=== PATIENT | male | born 2000 | race African-American/Black ===

== ENCOUNTER 2020-04-02 10:08 | Emergency (ER) | payer BC, OTHER | END 2020-04-02 11:11 | disposition home or self-care (01) | LOC: ERS 10:08 | DX: B00.9 Herpesviral infection, unspecified (principal); F32.9 Major depressive disorder, single episode, unspecified; F17.210 Nicotine dependence, cigarettes, uncomplicated; Z79.899 Other long term (current) drug therapy | CPT/HCPCS: 99283 ==

== ENCOUNTER 2021-01-15 16:51 | Emergency (ER) | payer SELFPAY | END 2021-01-15 17:27 | disposition home or self-care (01) | LOC: ERS 16:51 | DX: K64.4 Residual hemorrhoidal skin tags (principal); F17.210 Nicotine dependence, cigarettes, uncomplicated | CPT/HCPCS: 99283 ==

== ENCOUNTER 2021-01-19 02:52 | Emergency (ER) | payer SELFPAY ==
[2021-01-19] MEDS ORDERED: Ketorolac Tromethamine 30 MG/ML VIAL ONE (03:22)
[2021-01-19 04:01] LABS: Bacteria/HPF None Seen HPF (None Seen); Bilirubin Negative (Negative); Blood, Urine 3+ (Negative); Clarity Turbid (Clear); Glucose, Urine (Dipstick) Normal (Negative); Ketone, Urine Negative (Negative); Leukocyte Negative Leu/uL (Negative); Nitrite Negative (Negative); Protein, Urine (Dipstick) 50 mg/dL (Neg-Trace); RBC/HPF Greater than 50 HPF (0-3); Specific Gravity, Urine 1.033 (1.002-1.036); Squamous Epithelial None Seen HPF (0-3)
[2021-01-19 04:19] LABS: ALT (SGPT) 15 U/L (8-55); Albumin 4.4 g/dL (3.5-5.0); Alkaline Phosphatase 69 U/L (50-130); Anion Gap 16 mmol/L (10-20); BUN (Urea Nitrogen) 10 mg/dL (8.9-20.6); Bilirubin, Total 0.6 mg/dL (0.2-1.2); Calc. Creatinine Clearance 0 mL/min (70-130); Calcium 9.4 mg/dL (7.8-10.44); Carbon Dioxide 22 mmol/L (22-29); Chloride 103 mmol/L (98-107); Globulin 3.5 g/dL (2.4-3.5); Glucose 134 mg/dL (70-105); Protein, Total 7.9 g/dL (6.0-8.3); Sodium 137 mmol/L (136-145)
[2021-01-19 04:21] LABS: AST (SGOT) 26 U/L (5-34); Potassium 4.1 mmol/L (3.5-5.1)
== END 2021-01-19 04:42 | disposition home or self-care (01) ==
LOC: ERS 02:52
DX: N20.0 Calculus of kidney (principal); F17.210 Nicotine dependence, cigarettes, uncomplicated
CPT/HCPCS: 74176; 80053; 81003; 81015; 96374; J1885